=== PATIENT | male | born 1975 | race Caucasian/White ===

== ENCOUNTER → 2020-10-01 | Outpatient (CLI) | payer OTHER ==
--- NOTE | 2020-10-01 20:31 | MR ---
EXAMINATION TYPE: MR knee RT wo con DATE OF EXAM: 10/01/2020 COMPARISON: 04/25/2014 HISTORY: Rt knee pain Multiplanar multiecho imaging of the right knee was performed with no contrast. The anterior and posterior cruciate ligaments are intact. There is a mild knee joint effusion. The co llateral ligaments are intact. There is abnormal increased signal throughout the medial meniscus on t he medial aspect. There is horizontal tear of the posterior horn of the medial meniscus. The lateral meniscus appears intact. There is no evidence for fracture. Patellofemoral joint is intact. IMPRESSION: Mild knee joint effusion. Large complex tear of the medial meniscus extending into the posterior horn . Meniscal tear is increased compared to old exam. Knee joint effusion improved compared to old exam.
== END | disposition home or self-care (01) ==
LOC: RADMRIMAIN 14:09
PROVIDERS: ATTEND Family Medicine
DX: S83.231A Complex tear of medial meniscus, current injury, right knee, initial encounter (principal); M25.461 Effusion, right knee

== ENCOUNTER → 2021-05-19 | Outpatient (CLI) | payer BC ==
--- NOTE | 2021-05-19 14:14 | CT ---
EXAMINATION TYPE: CT abdomen pelvis wo con DATE OF EXAM: 05/19/2021 COMPARISON: None HISTORY: Renal stones CT DLP: 1010.10 mGycm Examination of the solid and hollow viscera is limited given the lack of contrast. FINDINGS: LUNG BASES: No evidence for nodule. No evidence for infiltrate. LIVER/GB: The gallbladder is unremarkable. No space-occupying hepatic lesion. PANCREAS: No pancreatic mass identified. No inflammatory process seen. SPLEEN: No evidence for splenomegaly. No intrasplenic lesions seen. ADRENALS: No adrenal nodules identified. No evidence for thickening. KIDNEYS: No evidence for renal mass. 3.5 mm calculus right UVJ resulting in mild right-sided hydronep hrosis. No additional calculi seen. BOWEL: Appendix has a normal appearance. No evidence of bowel obstruction. No inflammatory process. Lymph nodes: No evidence for adenopathy greater than 1 cm. Abdominal aorta: Atheromatous changes seen. No evidence for aneurysm. Genital organs: No significant abnormality. Other: No significant abnormality. IMPRESSION: 3.5 mm calculus right UVJ resulting in mild right-sided hydronephrosis.
== END | disposition home or self-care (01) ==
LOC: RADCTMAIN 13:12
PROVIDERS: ATTEND Family Medicine
DX: N13.2 Hydronephrosis with renal and ureteral calculous obstruction (principal)
CPT/HCPCS: 74176